=== PATIENT | female | born 1965 | race Caucasian/White ===

== ENCOUNTER 2023-10-26 08:00 | Outpatient (CLI) | payer OTHER ==
[2023-10-26 16:09] LABS: BILIRUBIN,URINE NEGATIVE (NEGATIVE); GLUCOSE, URINE (UA) NEGATIVE (NEGATIVE); KETONES,URINE (UA) NEGATIVE (NEGATIVE); LEUKOCYTE ESTERASE, URINE NEGATIVE (NEGATIVE); NITRITE,URINE NEGATIVE (NEGATIVE); OCCULT BLOOD,URINE TRACE-INTA (NEGATIVE); PH,URINE 5.5 PH (5.0-7.5); PROTEIN,URINE NEGATIVE (NEGATIVE); UROBILINOGEN,URINE 0.2 (NORMAL) E.U./dL (NORMAL)
[2023-10-26 16:11] LABS: CLARITY,URINE CLEAR (CLEAR)
[2023-10-26 16:21] LABS: BACTERIA,URINE Rare /HPF (None Seen); RBC,URINE 0-5 /HPF (0-5); SQUAMOUS EPITHELIAL CELL,UR RARE Squamous (<= Few); WBC,URINE 0-3 /HPF (0-5)
== END 2023-10-26 23:59 | disposition home or self-care (01) ==
LOC: LAB.WC 08:00
PROVIDERS: ATTEND Obstetrics & Gynecology
DX: R30.0 Dysuria (principal)
CPT/HCPCS: 81001; 87086

== ENCOUNTER 2023-11-30 06:25 | Day surgery (SDC) | payer OTHER ==
[2023-11-30] MEDS: LACTATED RINGERS 1,000 ML IV ONE (06:47)
[2023-11-30] MEDS: ACETAMINOPHEN 325 MG TABLET PO ONE (06:54)
--- NOTE | 2023-11-30 07:10 | ANESTHESIA ---
Pre-Anesthesia VS, & Labs - Diagnosis abnormal MRI - Procedure hysteroscopy, D&C Vital Signs: Temp Pulse Resp BP Pulse Ox O2 Flow Rate 36.0 C L 70 13 148/89 H 94 0 11/30/23 06:48 11/30/23 06:48 11/30/23 06:48 11/30/23 06:48 11/30/23 06:48 11/30/23 06:48 Height: 5 ft 4 in Weight (kg): 104.3 kg Body Mass Index: 39.4 BMI Classification: Obese - NPO >8 hours - Is Patient ?: Waiver signed Home Medications and Allergies Home Medications: Ambulatory Orders Adalimumab [Humira] 40 mg SUBQ ONCE 11/26/23 Cholecalciferol [Vitamin D3] 25 mcg PO DAILY 11/26/23 Folic Acid 1 mg PO DAILY 11/26/23 Methotrexate [Methotrexate Sodium] 8 tab PO OAW 11/26/23 Vitamin B Complex 1 each PO DAILY 11/26/23 Adalimumab [Humira] 40 mg SUBQ ONCE 11/26/23 Cholecalciferol [Vitamin D3] 25 mcg PO DAILY 11/26/23 Folic Acid 1 mg PO DAILY 11/26/23 Methotrexate [Methotrexate Sodium] 8 tab PO OAW 11/26/23 Vitamin B Complex 1 each PO DAILY 11/26/23 Allergies/Adverse Reactions: Allergies Allergy/AdvReac Type Severity Reaction Status Date / Time gluten Allergy Respiratory Verified 11/30/23 06:52 hazelnut Allergy Respiratory Verified 11/30/23 06:52 macadamia nut oil Allergy Respiratory Verified 11/30/23 06:52 perfume Allergy Unknown Verified 11/30/23 06:52 tetanus toxoid, adsorbed Allergy fever, Verified 11/30/23 06:52 swelling codeine AdvReac disoriented Verified 11/30/23 06:52 taurus, birch Allergy Unknown Uncoded 11/30/23 06:52 allium Allergy Respiratory Uncoded 11/30/23 06:52 nightshades Allergy Respiratory Uncoded 11/30/23 06:52 raw fruits Allergy Respiratory Uncoded 11/30/23 06:52 Anes History & Medical History - Anesthetic History Anesthesia Complications: reports: No previous complications - Medical History Cardiovascular: reports: None Pulmonary: reports: Asthma, Sleep apnea, CPAP use Gastrointestinal: reports: Other Urinary: reports: Kidney stones Musculoskeletal: reports: Rheumatoid arthritis Endocrine/Autoimmune: reports: None Skin: reports: None Smoking Status: Never smoker - Surgical History General: reports: Colonoscopy, EGD, Other Gynecologic: reports: Breast reduction Exam General: Alert, Oriented x3 Dental: WNL Mouth Opening: Greater than 4 Fingerbreadths Neck Mobility: Normal Mallampati classification: II Thyromental Distance: greater than 6 cm Respiratory: Lungs clear Cardiovascular: Regular rate Plan Anesthesia Type: General Consent for Procedure(s) Verified and Reviewed: Yes Code Status: Attempt Resuscitation ASA classification: 2-Mild systemic disease Is this case an emergency?: No
[2023-11-30] MEDS ORDERED: ATROPINE ABBOJECT 1 MG/10 ML SYRINGE IVP PRN (07:14)
[2023-11-30] MEDS ORDERED: MORPHINE 2 MG/ML CARPUJECT IVP PRN (07:14)
[2023-11-30] MEDS ORDERED: ePHEDrine 50 MG/ML VIAL IVP PRN (07:14)
[2023-11-30] MEDS ORDERED: NALOXONE 0.4 MG/ML VIAL IVP PRN (07:14)
[2023-11-30] MEDS ORDERED: HYDROmorphone 0.5 MG/0.5 ML SYRINGE IVP PRN (07:14)
[2023-11-30] MEDS ORDERED: fentaNYL 100 MCG/2 ML VIAL IVP PRN (07:14)
[2023-11-30] MEDS ORDERED: METOCLOPRAMIDE 10 MG/2 ML VIAL IVP PRN (07:14)
[2023-11-30] MEDS ORDERED: ONDANSETRON 4 MG/2 ML VIAL IVP PRN ×2 (07:14→09:56)
[2023-11-30] MEDS ORDERED: MIDAZOLAM 2 MG/2 ML VIAL ONE (07:23)
[2023-11-30] MEDS ORDERED: LIDOCAINE-PF 2% 10 ML AMP SUBQ ONE (07:23)
[2023-11-30] MEDS ORDERED: PROPOFOL 200 MG/20 ML VIAL IVP ONE (07:23)
[2023-11-30] MEDS ORDERED: fentaNYL 100 MCG/2 ML VIAL ONE (07:23)
[2023-11-30] MEDS ORDERED: LACTATED RINGERS 1,000 ML IV SCH (08:00)
[2023-11-30] MEDS ORDERED: ONDANSETRON 4 MG/2 ML VIAL ONE (08:23)
[2023-11-30] MEDS ORDERED: DEXAMETHASONE 4 MG/ML VIAL ONE (08:23)
[2023-11-30] MEDS: LACTATED RINGERS 500 ML IV ONE ×2 (08:57→09:18)
[2023-11-30] MEDS ORDERED: KETOROLAC 30 MG/ML VIAL ONE (09:02)
--- NOTE | 2023-11-30 09:51 | ANESTHESIA POST OP EVALUATION ---
Anesthesia Post Eval - Post Anesthesia Eval Vitals: Last Vital Signs Temp 36 C L 11/30/23 09:30 Pulse 64 11/30/23 09:40 Resp 16 11/30/23 09:40 BP 156/83 H 11/30/23 09:40 Pulse Ox 96 11/30/23 09:40 O2 Flow Rate 0 11/30/23 06:48 CV Function Including HR & BP: Stable Pain Control: Satisfactory Nausea & Vomiting: Negative Mental Status: Baseline Respiratory Status: Airway Patent Hydration Status: Satisfactory Anesthesia Complications: None
[2023-11-30] MEDS ORDERED: oxyCODONE 5 MG TABLET PO PRN (09:56)
[2023-11-30 10:27] VITALS: BP 140/80; O2SAT 99
--- NOTE | 2023-11-30 19:08 | OPERATIVE REPORT ---
Operative Report - General Procedure Date: 11/30/23 Planned Procedure: hysteroscopy with D&C Pre-Op Diagnosis: endometrial mass Procedure Performed: dilatation of cervis, hysteroscopy with removal of endometrial mass Post Op Diagnosis: same - Procedure Note Primary Surgeon: Milena Walker MD Secondary Surgeon: Jessica Ferraro MD Anesthesia Provider: Wendy Asher CRNA Anesthesia Technique: General LMA Pathology: endometrial curettings IV Fluids (mL): 500 Estimated Blood Loss (mL): 10 Urine Output (mL): 0 Indications: endometrial mass noted on pelvic MRI done for cramping. She was having some vaginal bleeding and had a benign biopsy a number of months ago. 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 Findings: very small vaginal opening. cervix flush with vaginal wall and tiny. intrauterine mass, likely a large polyp, filling cavity. removed completely. Complications: none - Other Other Information/Narrative: Procedure was reviewed and consents signed. She was brought to the OR. No abx indicated. General LMA anesthesia given. Legs placed in Roberto-type stirrups. Prepped with betadine. Vaginal prep done gently with large swabs instead of usual sponge as entry is small. Drapes placed. Time out done. Speculum placed carefully, not much room. Cervix was low and to left. Os is tiny. Grasped with tenaculum. Speculum was removed and a single blade of it was placed posteriorly with a Sharma speculum anteriorly. I dilated to allow passage of 6 mm hysteroscope. This is placed under direct visualization. Speculum were removed. I never got a really clear view of the cavity for more than a moment, but in the moment a large polyp-like mass was seen. This was removed with the MyoSure Reach. After this I was able to see the tubal ostia but still did not get a perfectly clear view. The cavity was empty. I tried to place a sharp curette after removing the scope but it really did not fit into the canal. All instruments removed. Patient was awakened and brought to recovery room in stable condition. She was discharged home after recovery. Hysteroscopy deficit < 500 cc.
== END 2023-11-30 06:26 | disposition home or self-care (01) ==
LOC: SDS 06:25
PROVIDERS: ATTEND Obstetrics & Gynecology
PROC: 0UB98ZZ Excision of Uterus, Via Natural or Artificial Opening Endoscopic (ICD-10-PCS; principal; 2023-11-30 07:30)
DX: C54.1 Malignant neoplasm of endometrium (principal); E66.9 Obesity, unspecified; Z68.39 Body mass index [BMI] 39.0-39.9, adult; M05.9 Rheumatoid arthritis with rheumatoid factor, unspecified
CPT/HCPCS: 58558; A9270; J7120